=== PATIENT | male | born 1965 | race Caucasian/White ===

== ENCOUNTER → 2017-11-26 | Outpatient (CLI) | payer OTHER ==
--- NOTE | 2017-11-26 16:25 | XR ---
EXAMINATION TYPE: XR knee limited LT DATE OF EXAM: 11/26/2017 CLINICAL HISTORY: Left knee pain TECHNIQUE: Three views of the left knee are obtained. COMPARISON: None. FINDINGS: There is no acute fracture/dislocation evident in left knee. There is mild medial compartm ent joint space narrowing and tibial plateau sclerosis.. The overlying soft tissue appears unremarka ble. IMPRESSION: There is no acute fracture or dislocation in the left knee. Mild medial compartment arth rosis.
== END | disposition home or self-care (01) ==
LOC: RADXRMAIN 15:47
PROVIDERS: ATTEND Midwife
DX: M17.12 Unilateral primary osteoarthritis, left knee (principal)

== ENCOUNTER 2018-02-03 13:09 | Observation (INO) | payer OTHER ==
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
[2018-02-03 14:44] LABS: ALT 157 U/L (21-72); AST 187 U/L (17-59); Albumin 4.7 g/dL (3.5-5.0); Alkaline Phosphatase 136 U/L (38-126); Amylase 121 U/L (30-110); Anion Gap 13 mmol/L; Blood Urea Nitrogen 6 mg/dL (9-20); Calcium 9.2 mg/dL (8.4-10.2); Carbon Dioxide 25 mmol/L (22-30); Chloride 106 mmol/L (98-107); Glucose 93 mg/dL (74-99); Lipase 350 U/L (23-300); Potassium 4.4 mmol/L (3.5-5.1); Sodium 144 mmol/L (137-145); Total Bilirubin 0.7 mg/dL (0.2-1.3); Total Protein 8.1 g/dL (6.3-8.2)
[2018-02-03 14:45] LABS: Amphetamine Screen,Urine Not Detected (NotDetected); Barbiturate Screen,Urine Not Detected (NotDetected); Benzodiazepines Screen,Urine Not Detected (NotDetected); Cocaine Screen,Urine Not Detected (NotDetected); Methadone Screen, Urine Not Detected (NotDetected); Opiate Screen,Urine Not Detected (NotDetected); Oxycodone Screen, Urine Not Detected (NotDetected); Phencyclidine Screen,Urine Not Detected (NotDetected); Tricyclic Antidepressant,Urine Not Detected (NotDetected); Urn Cannabinoid Scrn Not Detected (NotDetected)
[2018-02-03 14:59] LABS: Alcohol 326 mg/dL
[2018-02-03 15:03] LABS: Basophils % (A) 1 %; Eosinophils # (A) 0.1 k/uL (0-0.7); Eosinophils % (A) 3 %; HCT 44.9 % (39.0-53.0); HGB 15.4 gm/dL (13.0-17.5); Lymphocytes # (A) 0.6 k/uL (1.0-4.8); Lymphocytes % (A) 26 %; MCH 36.8 pg (25.0-35.0); MCHC 34.4 g/dL (31.0-37.0); MCV 107.1 fL (80.0-100.0); Macrocytosis Moderate; Monocytes # (A) 0.2 k/uL (0-1.0); Monocytes % (A) 10 %; Neutrophils # (A) 1.3 k/uL (1.3-7.7); Neutrophils % (A) 54 %; Platelet Count 138 k/uL (150-450); RDW 13.1 % (11.5-15.5); WBC 2.3 k/uL (3.8-10.6)
[2018-02-03] MEDS ORDERED: NALOXONE 0.4 MG/ML 1 ML VIAL IV PRN (15:15)
[2018-02-03] MEDS ORDERED: THIAMINE 100 MG/ML 2 ML VIAL IM STA (15:18)
[2018-02-03] MEDS ORDERED: LORazepam 2 MG/ML INJ IV PRN ×2 (15:18)
[2018-02-03] MEDS: THIAMINE 100 MG TAB PO SCH (18:47)
[2018-02-03] MEDS ORDERED: ARTIFICIAL TEARS-HYPROMELLOSE DROPS 15 ML BTL BOTH EYES PRN (21:19)
[2018-02-03] MEDS ORDERED: TEMAZEPAM 15 MG CAP PO PRN (21:20)
[2018-02-03] MEDS ORDERED: ACETAMINOPHEN TAB 500 MG TAB PO PRN (21:20)
[2018-02-03] MEDS ORDERED: cloNIDine HCL 0.1 MG TAB PO PRN (21:21)
[2018-02-03 22:03] LABS: Appearance,Urine Clear (Clear); Bilirubin,Urine Negative (Negative); Blood,Urine Negative (Negative); Color,Urine Light Yellow; Glucose,Urine (UA) Negative (Negative); Ketones,Urine Negative (Negative); Leukocyte Esterase,Urine Negative (Negative); Nitrite,Urine Negative (Negative); Protein,Urine Negative (Negative); Specific Gravity,Urine 1.006 (1.001-1.035); Urobilinogen,Urine <2.0 mg/dL (<2.0)
--- NOTE | 2018-02-03 22:45 | HP ---
HISTORY AND PHYSICAL DATE OF SERVICE: 02/03/2018 I am covering for Dr. Michael Smith. HISTORY OF PRESENT ILLNESS: This 52-year-old gentleman with a past medical history of no significant medical issues except depression being followed by Dr. Michael Smith in the outpatient setting was apparently drinking heavily last night. The patient had a voice telling him that the had to kill himself. The patient apparently was withdrawing. Subsequently patient came to [facility] and was admitted for further evaluation and treatment. The patient was drinking Vodka and multiple cans of beer also. There is no history of fever, rigors. No history of headache, loss of consciousness, seizures at this time. PAST MEDICAL HISTORY: History of depression. History of EtOH. Stent in the kidneys. MEDICATIONS: Prior to admission include: Eye lubricant and Lexapro 10 mg daily. ALLERGIES: None. FAMILY HISTORY: History of cancer in the family. SOCIAL HISTORY: History of significant alcohol. No history of smoking. REVIEW OF SYSTEMS: ENT: No diminished vision. No diminished hearing. CARDIOVASCULAR: No angina or palpitations. RESPIRATORY: No cough or hemoptysis. GI no nausea or vomiting. : No dysuria. NERVOUS SYSTEM: As mentioned earlier. Allergy/Immunology: No asthma or hayfever. Musculoskeletal as mentioned earlier. Hematology/Oncology: No history of anemia. ENDOCRINE: No history of diabetes or hypothyroidism. Constitutional: As mentioned earlier. Dermatology: Negative. Rheumatology: Negative. Psychiatry: As mentioned earlier. PHYSICAL EXAMINATION: Alert and oriented times three. Pulse is 112, blood pressure 135/94, respiration 18, temperature 97.2, pulse ox 97% on room air. HEENT: Conjunctivae normal. Oral mucosa moist. Neck is no jugular venous distention. No carotid bruit. No lymph node enlargement. Cardiovascular system: S1, S2. RESPIRATORY: Breath sounds diminished in the bases. No rhonchi. No crackles. ABDOMEN: Soft, nontender. No mass palpable. Legs no edema. No swelling. Nervous system: Higher functions as mentioned earlier. Moves all 4 limbs. Mild diffuse tremors present. Otherwise no focal deficits. SKIN: No ulcer, rash or bleeding. JOINTS: No active deformity. Lymphatics: No lymph nodes palpable in the neck, axillae or groin. LABS: At this time shows WBC 2.3 and hemoglobin 15.4, and AST 187, ALT 157, amylase 121, lipase 350. Serum alcohol 326. ASSESSMENT: 1. Acute alcohol intoxication and early withdrawal symptoms. 2. Depression with suicidal ideations. 3. AST, ALT, possibly alcoholic hepatitis. 4. Increased amylase, lipase, possible mild alcoholic pancreatitis. 5. Leukopenia secondary to alcohol. 6. History of kidney stent. 7. History of depression. RECOMMENDATIONS AND DISCUSSION: In this 52-year-old gentleman who presented with multiple complex medical issues, we will monitor the patient closely continue the current medications, management and symptomatic treatment, follow the CIWA protocol. Psychiatric consultation. Otherwise, suicide precautions. Symptomatic treatment. Prognosis guarded because of multiple complex medical issues. Further recommendations to follow. Dr. Smith will follow. MMODL / IJN: [id number] /
[2018-02-04] MEDS: LORazepam 2 MG/ML INJ IV PRN ×2 (02:59→08:58)
[2018-02-04] MEDS: cloNIDine HCL 0.1 MG TAB PO SCH ×2 (07:17→09:00)
[2018-02-04] MEDS ORDERED: PANTOPRAZOLE 40 MG TABLET PO SCH (07:30)
[2018-02-04] MEDS ORDERED: PNEUMOCOCCAL VACC-PNEUMOVAX 23 25 MCG/0.5 ML VIAL IM ONE (07:43)
[2018-02-04] MEDS ORDERED: INFLUENZA VACCINE (6 MOS+) 60 MCG/0.5 ML SYRINGE IM ONE (07:43)
[2018-02-04] MEDS ORDERED: HEPARIN SODIUM,PORCINE 5,000 UNIT/ML 1 ML VIAL SQ SCH (09:00)
[2018-02-04] MEDS ORDERED: ESCITALOPRAM 10 MG TAB PO SCH (09:00)
[2018-02-04 10:26] LABS: Basophils % (A) 1 %; Eosinophils # (A) 0.1 k/uL (0-0.7); Eosinophils % (A) 2 %; HCT 41.6 % (39.0-53.0); Lymphocytes # (A) 0.4 k/uL (1.0-4.8); Lymphocytes % (A) 11 %; MCH 35.9 pg (25.0-35.0); MCHC 33.7 g/dL (31.0-37.0); MCV 106.3 fL (80.0-100.0); Macrocytosis Slight; Mean Platelet Volume 7.4; Monocytes # (A) 0.3 k/uL (0-1.0); Monocytes % (A) 8 %; Neutrophils # (A) 2.6 k/uL (1.3-7.7); Neutrophils % (A) 75 %; Platelet Count 143 k/uL (150-450); RBC 3.91 m/uL (4.30-5.90); RDW 12.9 % (11.5-15.5); WBC 3.5 k/uL (3.8-10.6)
[2018-02-04 11:02] LABS: ALT 126 U/L (21-72); AST 137 U/L (17-59); Albumin 4.5 g/dL (3.5-5.0); Alkaline Phosphatase 145 U/L (38-126); Amylase 104 U/L (30-110); Anion Gap 10 mmol/L; Blood Urea Nitrogen 11 mg/dL (9-20); Calcium 9.7 mg/dL (8.4-10.2); Carbon Dioxide 30 mmol/L (22-30); Chloride 100 mmol/L (98-107); Glucose 107 mg/dL (74-99); Lipase 280 U/L (23-300); Potassium 3.9 mmol/L (3.5-5.1); Sodium 140 mmol/L (137-145); Total Bilirubin 1.3 mg/dL (0.2-1.3); Total Protein 7.6 g/dL (6.3-8.2)
--- NOTE | 2018-02-04 12:10 | P.PN ---
Subjective Patient resting in bed states he had some on nausea last night. Noted symptoms of withdrawal. States the patient is no longer suicidal states that it was secondary to the alcohol. Patient is a family stress Objective - Vital Signs Vital signs: Vital Signs Temp 98.4 F 02/04/18 02:41 Pulse 77 02/04/18 02:41 Resp 19 02/04/18 02:41 BP 165/85 02/04/18 02:41 Pulse Ox 98 02/04/18 02:41 Intake & Output 02/03/18 02/04/18 02/04/18 18:59 06:59 18:59 Intake Total 30 Balance 30 Weight 73.028 kg Intake: Amount of Fluid Infused ( 30 ml) - Constitutional General appearance: Present: mild distress - EENT Eyes: Present: PERRLA Ears: bilateral: normal - Neck Neck: Present: normal ROM - Respiratory Respiratory: bilateral: CTA - Cardiovascular Rhythm: regular - Gastrointestinal General gastrointestinal: Present: soft - Integumentary Integumentary: Present: normal - Neurologic Neurologic: Present: CNII-XII intact - Psychiatric Psychiatric: Present: A&O x's 3, appropriate affect, intact judgment & insight - Labs CBC & Chem 7: 02/04/18 09:26 02/04/18 09:26 Labs: Abnormal Lab Results - Last 24 Hours (Table) 02/03/18 02/03/18 02/04/18 Range/Units 14:20 14:20 09:26 WBC 2.3 L 3.5 L (3.8-10.6) k/uL RBC 4.20 L 3.91 L (4.30-5.90) m/uL MCV 107.1 H 106.3 H (80.0-100.0) fL MCH 36.8 H 35.9 H (25.0-35.0) pg Plt Count 138 L 143 L (150-450) k/uL Lymphocytes # 0.6 L 0.4 L (1.0-4.8) k/uL BUN 6 L (9-20) mg/dL Creatinine 0.65 L (0.66-1.25) mg/dL Glucose (74-99) mg/dL AST 187 H (17-59) U/L ALT 157 H (21-72) U/L Alkaline Phosphatase 136 H (38-126) U/L Amylase 121 H (30-110) U/L Lipase 350 H (23-300) U/L Serum Alcohol 326 H* mg/dL 02/04/18 Range/Units 09:26 WBC (3.8-10.6) k/uL RBC (4.30-5.90) m/uL MCV (80.0-100.0) fL MCH (25.0-35.0) pg Plt Count (150-450) k/uL Lymphocytes # (1.0-4.8) k/uL BUN (9-20) mg/dL Creatinine (0.66-1.25) mg/dL Glucose 107 H (74-99) mg/dL AST 137 H (17-59) U/L ALT 126 H (21-72) U/L Alkaline Phosphatase 145 H (38-126) U/L Amylase (30-110) U/L Lipase (23-300) U/L Serum Alcohol mg/dL Assessment and Plan Plan: Assessment Acute alcohol intoxication with early withdrawals symptoms Depression with suicidal ideation improving Alcoholic hepatitis Alcoholic pancreatitis improving Leukopenia secondary to alcohol History of kidney stent History depression Plan Monitor for delirium tremor Psychiatric consultation regarding suicidal ideation His aide at bedside to monitor for his suicidal precautions
[2018-02-04] MEDS: THIAMINE 100 MG TAB PO SCH ×2 (12:41→17:18)
[2018-02-04 12:51] VITALS: RESP 22
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
[2018-02-04 14:16] VITALS: BMI 24.5
[2018-02-04 15:49] VITALS: BP 131/85; PULSE 104; TEMP 98.6
--- NOTE | 2018-02-04 15:50 | P.DS ---
Providers Date of admission: 02/03/18 15:15 Expected date of discharge: 02/04/18 Attending physician: Michael Smith Consults: 02/03/18 15:37 Consult Physician Routine Consulting Provider: Navin Tobar Consult Reason/Comments: Depression, suicidal ideation Do you want consulting provider notified?: Yes, Notify in am Primary care physician: Michael Smith Hospital Course: 52-year-old male was admitted through the emergency room with acute alcohol intoxication and the suicidal ideation. Patient was evaluated by psychiatrists and cleared for discharge. Patient develop a physician Dr. Michael Smith. Patient was found to have mild alcoholic pancreatitis that is improved Assessment acute alcohol intoxication with early withdrawal symptoms depression or suicidal ideation alcoholic hepatitis alcoholic pancreatitis improved history of depression Plan follow up with the psychiatrist follow up with family physician Dr. Michael Smith Patient Condition at Discharge: Stable Plan - Discharge Summary Discharge Rx Participant: No New Discharge Prescriptions: New Artificial Tears-Hypromellose [Artificial Tear Drops] 1 drops BOTH EYES DAILY PRN bottle PRN Reason: Dry Eye(S) cloNIDine HCL [Catapres] 0.1 mg PO BID 10 Days #20 tab Naltrexone HCl [Revia] 50 mg PO 2100 30 Days #30 tab Pantoprazole [Protonix] 40 mg PO AC-BRKFST 30 Days #30 tablet. Thiamine [Vitamin B-1] 100 mg PO BID@1200,1700 tab Continue Escitalopram [Lexapro] 10 mg PO DAILY Discontinued Eye Lubricant Combination No.1 [Freshkote] 1 applic BOTH EYES DAILY PRN PRN Reason: Dry Eye(S) Discharge Medication List Escitalopram [Lexapro] 10 mg PO DAILY 02/03/18 [History] Artificial Tears-Hypromellose [Artificial Tear Drops] 1 drops BOTH EYES DAILY PRN bottle 02/04/18 [Rx] Naltrexone HCl [Revia] 50 mg PO 2100 30 Days #30 tab 02/04/18 [Rx] Pantoprazole [Protonix] 40 mg PO AC-BRKFST 30 Days #30 tablet. 02/04/18 [Rx] Thiamine [Vitamin B-1] 100 mg PO BID@1200,1700 tab 02/04/18 [Rx] cloNIDine HCL [Catapres] 0.1 mg PO BID 10 Days #20 tab 02/04/18 [Rx] Follow up Appointment(s)/Referral(s): Michael Smith MD [Primary Care Provider] - 1-2 days
[2018-02-04] MEDS ORDERED: NALTREXONE HCL 50 MG TAB PO SCH (21:00)
== END 2018-02-04 17:50 | disposition home or self-care (01) ==
LOC: EC 13:09 → 5MS5E 15:15
PROVIDERS: ADMIT Family Medicine; ATTEND Family Medicine
DX: F10.239 Alcohol dependence with withdrawal, unspecified (principal); F10.229 Alcohol dependence with intoxication, unspecified; F32.9 Major depressive disorder, single episode, unspecified; R45.851 Suicidal ideations; K70.10 Alcoholic hepatitis without ascites; K85.90 Acute pancreatitis without necrosis or infection, unspecified; Z79.899 Other long term (current) drug therapy; Z80.9 Family history of malignant neoplasm, unspecified; D72.819 Decreased white blood cell count, unspecified; Z23 Encounter for immunization
CPT/HCPCS: 99284; 96372 ×3; 96374 ×2; 96376; 82075; 36415; 80053 ×2; 82150 ×2; 83690 ×2; 83735; 85025 ×2; 81003; 80306; 90732; 90686; G0378 ×2; G0480 ×2; G0008; G0009; J2060; J1644; J3411; 80320

== ENCOUNTER 2018-05-25 08:48 | Emergency (ER) | payer OTHER ==
[2018-05-25 08:59] VITALS: RESP 18; TEMP 98.7
[2018-05-25] MEDS ORDERED: DIPH,PERTUS(ACELL)TETVAC-LF 0.5 ML VIAL IM ONE (09:19)
--- NOTE | 2018-05-25 09:20 | ED ---
Animal Bite HPI - General Chief Complaint: Animal Bite Stated Complaint: cat bite Time Seen by Provider: 05/25/18 09:09 Source: patient, RN notes reviewed, old records reviewed Mode of arrival: ambulatory Limitations: no limitations - History of Present Illness Initial Comments: Patient is a 32-year-old male who presents to return today with chief complaint of right wrist and hand pain and swelling 2 days after he was bit by a feral cat. Patient reports that his brought a feral cat to the house trying to save it. Patient states that he tried to remove the cap from the house and was attacks. Patient states that he had multiple puncture wounds from bites on the right wrist. He states that he noticed that it started to become increasingly swollen and red today. He hasn't not been vaccinated for rabies. As well as not had any antibiotics as of this time. Patient denies any fevers at this time. He states he has some pain with range of motion of the wrist and hand. - Related Data Home Medications Medication Instructions Recorded Confirmed Escitalopram [Lexapro] 10 mg PO DAILY 02/03/18 05/25/18 Previous Rx's Medication Instructions Recorded Amoxic-Pot Clav 875-125Mg 1 tab PO Q12HR #20 tablet 05/25/18 [Augmentin 875-125] Allergies Allergy/AdvReac Type Severity Reaction Status Date / Time No Known Allergies Allergy Verified 05/25/18 09:36 Review of Systems ROS Statement: Those systems with pertinent positive or pertinent negative responses have been documented in the HPI. ROS Other: All systems not noted in ROS Statement are negative. Past Medical History Past Medical History: No Reported History Additional Past Medical History / Comment(s): ETOH with past withdrawal, diverticular disease, internal hemorrhoids. 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 Father Family Medical History: Cancer Additional Family Medical History / Comment(s): Father of colono cancer at the age of 75yrs. General Exam - General Exam Comments Initial Comments: 52-year-old male. Alert and oriented. No acute distress. Limitations: no limitations General appearance: alert, in no apparent distress Head exam: Present: atraumatic, normocephalic, normal inspection Eye exam: Present: normal appearance, PERRL, EOMI. Absent: scleral icterus, conjunctival injection, periorbital swelling ENT exam: Present: normal exam, mucous membranes moist Neck exam: Present: normal inspection. Absent: tenderness, meningismus, lymphadenopathy Respiratory exam: Present: normal lung sounds bilaterally. Absent: respiratory distress, wheezes, rales, rhonchi, stridor Cardiovascular Exam: Present: regular rate, normal rhythm, normal heart sounds. Absent: systolic murmur, diastolic murmur, rubs, gallop, clicks GI/Abdominal exam: Present: soft, normal bowel sounds. Absent: distended, tenderness, guarding, rebound, rigid Extremities exam: Present: normal inspection, full ROM, normal capillary refill. Absent: tenderness, pedal edema, joint swelling, calf tenderness Right Elbow exam: Present: normal inspection, full ROM Forearm Wrist exam: Present: tenderness, swelling, erythema (Patient has tenderness swelling and erythema over the dorsum of the right wrist. Evidence of closed over puncture wounds from cat bite over the distal radius.). Absent: normal inspection Hand Wrist exam: Present: tenderness, swelling, erythema. Absent: normal inspection Vascular: Present: normal capillary refill Back exam: Present: normal inspection Neurological exam: Present: alert, oriented X3, CN II-XII intact Psychiatric exam: Present: normal affect, normal mood Skin exam: Present: warm, dry, intact, normal color. Absent: rash Course Vital Signs 05/25/18 08:57 Temperature 98.7 F Pulse Rate 105 H Respiratory 18 Rate Blood Pressure 155/101 O2 Sat by Pulse 98 Oximetry - Reevaluation(s) Reevaluation #1: 05/25/18 10:07 I infiltrated 4.7 mL's of rabies immunoglobulin and around the bite site. Medical Decision Making - Medical Decision Making Patient's 52-year-old male presents emergency department today 2 days post-cat bite. He has extensive erythema and swelling over the right hand and distal forearm. He does have range of motion sign. Normal capillary refill and sensation. Patient was offered admission. He was given 1 dose of IV Unasyn. He states he preferred to try a course of outpatient antibiotic. I did give the Patient is rabies injection with around the bite site as well as the rabies vaccine IM. He also was updated on his tetanus. Patient has been advised on strict return parameters and if the area of redness and swelling worsen within the next 24-48 hours he will require IV antibiotics. Patient agrees to treatment plan will comply. Return parameters were discussed. - Radiology Data Radiology results: report reviewed X-rays negative for any acute osseous lesion. Disposition Clinical Impression: Cat bite Disposition: HOME SELF-CARE Condition: Good Instructions (If sedation given, give patient instructions): Animal Bite (ED) Additional Instructions: Patient advised to follow-up. If the area of redness and swelling worsens within the next 24 hours Patient should return for reevaluation and likely IV antibiotic. Patient should also get the tetanus vaccines asked prescribed as well an outpatient [facility] office. Prescriptions: Amoxic-Pot Clav 875-125Mg [Augmentin 875-125] 1 tab PO Q12HR #20 tablet Is patient prescribed a controlled substance at d/c from ED?: Yes If prescribed controlled substance>3 days was MAPS reviewed?: Prescribed <3 Days If opioid is for acute pain is fill amount 7 days or less?: Yes If Rx opioid, was Start Talking consent form obtained?: Yes Referrals: Michael Smith MD [Primary Care Provider] - 1-2 days Time of Disposition: 10:53
[2018-05-25] MEDS ORDERED: AMPICILLIN-SULBACTAM 3 GM in SODIUM CHLORIDE 0.9% 100 ML IVPB STA (09:22)
[2018-05-25] MEDS ORDERED: RABIES VACC,HUMAN DIPLOID (PF) 2.5 UNIT KIT IM ONE (09:30)
[2018-05-25] MEDS ORDERED: RABIES IMMUNE GLOB 150 UNIT/ML 10 ML VIAL IM ONE (09:30)
[2018-05-25 09:38] LABS: HCT 38.9 % (39.0-53.0); HGB 12.8 gm/dL (13.0-17.5); MCH 35.6 pg (25.0-35.0); MCHC 32.9 g/dL (31.0-37.0); MCV 108.2 fL (80.0-100.0); Macrocytosis Moderate; Mean Platelet Volume 7.3; Platelet Count 162 k/uL (150-450); RBC 3.59 m/uL (4.30-5.90); RDW 12.9 % (11.5-15.5); WBC 5.4 k/uL (3.8-10.6)
--- NOTE | 2018-05-25 09:39 | XR ---
EXAMINATION TYPE: XR hand complete RT , DATE OF EXAM ORDERED: 05/25/2018 HISTORY: Cat bite. COMPARISON: None. FINDINGS: No fracture, dislocation or radiopaque foreign body is seen. There is soft tissue swelling over the dorsum of the hand. IMPRESSION: NO ACUTE OSSEOUS LESION.
[2018-05-25 09:44] LABS: Anion Gap 9 mmol/L; Blood Urea Nitrogen 5 mg/dL (9-20); Calcium 8.9 mg/dL (8.4-10.2); Carbon Dioxide 25 mmol/L (22-30); Chloride 102 mmol/L (98-107); Glucose 130 mg/dL (74-99); Potassium 3.3 mmol/L (3.5-5.1); Sodium 136 mmol/L (137-145)
[2018-05-25 09:55] LABS: Eosinophils # (M) 0.05 k/uL (0-0.7); Lymphocytes # (M) 0.49 k/uL (1.0-4.8); Monocytes # (M) 0.76 k/uL (0-1.0); Neutrophils % (M) 76 %; Nucleated Red Blood Cells 0 /100 WBC (0-0); Poikilocytosis (M) Present; Total Cells Counted 100
[2018-05-25] MEDS ORDERED: KETOROLAC 30 MG/ML 1 ML VIAL IVP STA (10:02)
[2018-05-25] MEDS ORDERED: HYDROcodone/APAP 5-325MG 1 EACH TAB PO STA (10:02)
[2018-05-25 11:13] VITALS: BP 147/67; PULSE 72
== END 2018-05-25 11:13 | disposition home or self-care (01) ==
LOC: EC 08:48
DX: S61.531A Puncture wound without foreign body of right wrist, initial encounter (principal); F32.9 Major depressive disorder, single episode, unspecified; Z23 Encounter for immunization; Z79.899 Other long term (current) drug therapy; W55.01XA Bitten by cat, initial encounter; Y93.89 Activity, other specified
CPT/HCPCS: 36415; 80048; 85025; 87040; 73130; 90375; 90675; 90715; 99284; 96365; 96372; 90471; 90472; J0295

== ENCOUNTER 2018-05-26 10:14 | Inpatient (IN) | payer OTHER ==
[2018-05-26] MEDS ORDERED: SODIUM CHLORIDE 0.9% 1,000 ML IV ONE (11:11)
[2018-05-26] MEDS ORDERED: AMPICILLIN-SULBACTAM 3 GM in SODIUM CHLORIDE 0.9% 100 ML IVPB STA (11:11)
--- NOTE | 2018-05-26 11:26 | ED ---
Animal Bite HPI - General Chief Complaint: Animal Bite Stated Complaint: cat bite recheck Time Seen by Provider: 05/26/18 11:09 Source: patient, RN notes reviewed, old records reviewed Mode of arrival: ambulatory Limitations: no limitations - History of Present Illness Initial Comments: Patient's 52-year-old male who presents by his family today for reevaluation. He reports worsening swelling of the right forearm. Patient states he was bit by The Right Wrist on the Sunday. Patient reports that he has had no fevers or chills. He states the swelling his hand is diminished today. I did also give the Patient rabies prophylaxis yesterday. Patient was advised on strict return parameters and return today. It was of note the Patient did have a positive blood culture of gram-positive cocci. - Related Data Home Medications Medication Instructions Recorded Confirmed Escitalopram [Lexapro] 10 mg PO DAILY 02/03/18 05/26/18 Previous Rx's Medication Instructions Recorded Amoxic-Pot Clav 875-125Mg 1 tab PO Q12HR #20 tablet 05/25/18 [Augmentin 875-125] Allergies Allergy/AdvReac Type Severity Reaction Status Date / Time No Known Allergies Allergy Verified 05/26/18 12:07 Review of Systems ROS Statement: Those systems with pertinent positive or pertinent negative responses have been documented in the HPI. ROS Other: All systems not noted in ROS Statement are negative. Past Medical History Past Medical History: No Reported History Additional Past Medical History / Comment(s): ETOH with past withdrawal, diverticular disease, internal hemorrhoids. 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 Father Family Medical History: Cancer Additional Family Medical History / Comment(s): Father of colono cancer at the age of 75yrs. General Exam - General Exam Comments Initial Comments: This is a 52-year-old male. Alert and oriented. Appears well. No acute distress. Limitations: no limitations General appearance: alert, in no apparent distress Head exam: Present: atraumatic, normocephalic, normal inspection Eye exam: Present: normal appearance, PERRL, EOMI. Absent: scleral icterus, conjunctival injection, periorbital swelling ENT exam: Present: normal exam, mucous membranes moist Neck exam: Present: normal inspection. Absent: tenderness, meningismus, lymphadenopathy Respiratory exam: Present: normal lung sounds bilaterally. Absent: respiratory distress, wheezes, rales, rhonchi, stridor Cardiovascular Exam: Present: regular rate, normal rhythm, normal heart sounds. Absent: systolic murmur, diastolic murmur, rubs, gallop, clicks GI/Abdominal exam: Present: soft, normal bowel sounds. Absent: distended, tenderness, guarding, rebound, rigid Extremities exam: Present: normal inspection, full ROM, normal capillary refill , other (Patient has erythema extending up the dorsum of the right hand, volar aspect of the forearm. The erythema extends near the elbow. There is evidence of Bite puncture wounds over the distal radius. He does have full range of motion of the fingers. Full flexion and extension of the wrist.). Absent: tenderness, pedal edema, joint swelling, calf tenderness Back exam: Present: normal inspection Neurological exam: Present: alert, oriented X3, CN II-XII intact Psychiatric exam: Present: normal affect, normal mood Skin exam: Present: warm, dry, intact, normal color. Absent: rash Course Vital Signs 05/26/18 10:56 Temperature 98.2 F Pulse Rate 87 Respiratory 18 Rate Blood Pressure 137/73 O2 Sat by Pulse 98 Oximetry Medical Decision Making - Medical Decision Making Patient's age 2-year-old male for reevaluation for Bite cellulitis and infection. Patient has had 3 doses of antibiotics at this time. He was given a dose of IV Unasyn yesterday. He was updated on his tetanus and given rabies prophylaxis. This was a feral cat that his brought in. Patient returns today for worsening swelling and redness going up the arm. He came in for IV antibiotic. I discussed case with Dr. De Guzman whom discussed case with Dr. Farooq that accepts admission. Given another dose of Unasyn in the ER. He is otherwise appears clinically well. It is of note the Patient did have some gram -positive cocci is a blood culture from yesterday. Disposition Clinical Impression: Failure of outpatient treatment, Cat bite of hand Disposition: ADMITTED IP TO THIS [facility] Condition: Stable Instructions (If sedation given, give patient instructions): Animal Bite (ED) Is patient prescribed a controlled substance at d/c from ED?: No Referrals: Michael Smith MD [Primary Care Provider] - 1-2 days Time of Disposition: 12:24
[2018-05-26] MEDS: SODIUM CHLORIDE 0.9% 1,000 ML IV SCH ×2 (11:50→20:36)
[2018-05-26 12:16] LABS: HCT 37.3 % (39.0-53.0); HGB 12.5 gm/dL (13.0-17.5); MCH 36.8 pg (25.0-35.0); MCHC 33.5 g/dL (31.0-37.0); MCV 109.7 fL (80.0-100.0); Macrocytosis Marked; Mean Platelet Volume 7.6; Platelet Count 178 k/uL (150-450); RDW 12.9 % (11.5-15.5); WBC 4.8 k/uL (3.8-10.6)
[2018-05-26] MEDS ORDERED: IBUPROFEN 400 MG TAB PO PRN (12:25)
[2018-05-26] MEDS ORDERED: ACETAMINOPHEN TAB 325 MG TAB PO PRN (12:25)
[2018-05-26] MEDS ORDERED: KETOROLAC 30 MG/ML 1 ML VIAL IVP PRN (12:25)
[2018-05-26] MEDS ORDERED: NALOXONE 0.4 MG/ML 1 ML VIAL IV PRN (12:25)
[2018-05-26] MEDS ORDERED: oxyCODONE-APAP 5-325MG 1 EACH TAB PO PRN (12:25)
[2018-05-26] MEDS ORDERED: ONDANSETRON 4 MG/2 ML VIAL IVP PRN (12:25)
[2018-05-26] MEDS ORDERED: LORazepam 2 MG/ML INJ IV PRN ×2 (12:25→14:41)
[2018-05-26 12:41] LABS: Band Neutrophils % 1 %; Lymphocytes # (M) 1.06 k/uL (1.0-4.8); Monocytes # (M) 0.58 k/uL (0-1.0); Neutrophils % (M) 63 %; Nucleated Red Blood Cells 0 /100 WBC (0-0); Total Cells Counted 100
[2018-05-26 12:45] LABS: ALT 118 U/L (21-72); AST 105 U/L (17-59); Albumin 3.8 g/dL (3.5-5.0); Alkaline Phosphatase 100 U/L (38-126); Anion Gap 6 mmol/L; Blood Urea Nitrogen 6 mg/dL (9-20); Calcium 8.9 mg/dL (8.4-10.2); Carbon Dioxide 28 mmol/L (22-30); Chloride 103 mmol/L (98-107); Glucose 68 mg/dL (74-99); Potassium 4.1 mmol/L (3.5-5.1); Sodium 137 mmol/L (137-145); Total Protein 6.6 g/dL (6.3-8.2)
[2018-05-26] MEDS ORDERED: hydrALAZINE HCL 20 MG/ML 1 ML VIAL IVP STA (13:49)
--- NOTE | 2018-05-26 14:42 | P.HPIM ---
History of Present Illness H&P Date: 05/26/18 Chief Complaint: Right hand swelling Patient is a 52-year-old male with a known history of alcohol abuse, diverticular disease and internal hemorrhoids and depression and previous history of suicide ideation came to ER with the complaints of right hand worsening swelling since last Sunday. Patient did have cat scratch on the dorsum of the hand and on the wrist. Patient started having swelling the next day. Patient was seen in the ER yesterday and was given a dose of Unasyn and sent home on Augmentin. Patient did take his medications and swelling is still worsening which made him come to the hospital. Denied any complaints of fever or chills. No sweating. No nausea vomiting or abdominal pain. No diarrhea or dysuria. No history of MRSA in the past. Denied any recent alcohol use. AST 105 and the LDL 118 Review of Systems Constitutional: Patient denies any fever or chills . No generalized weakness or weight loss. Abdomen: Patient denied nausea vomiting and diarrhea and abdominal pain. Cardiovascular: Patient denies any chest pain or short of breath no palpitations. Respiratory: patient denied any cough is from production. No shortness of breath Neurologic: Patient denied any numbness or tingling headache. Musculoskeletal: Patient denies any complaints of joint swelling or deformity. Swelling with the right hand and pain. Skin: Negative Psychiatric: Negative Endocrine: No heat or cold intolerance. No recent weight gain. Genitourinary: No dysuria or hematuria. All other 14 point ROS negative except the above Past Medical History Past Medical History: No Reported History Additional Past Medical History / Comment(s): ETOH with past withdrawal, diverticular disease, internal hemorrhoids. 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 Father Family Medical History: Cancer Additional Family Medical History / Comment(s): Father of colono cancer at the age of 75yrs. Medications and Allergies Home Medications Medication Instructions Recorded Confirmed Type Escitalopram [Lexapro] 10 mg PO DAILY 02/03/18 05/26/18 History Amoxic-Pot Clav 875-125Mg 1 tab PO Q12HR #20 tablet 05/25/18 05/26/18 Rx [Augmentin 875-125] Allergies Allergy/AdvReac Type Severity Reaction Status Date / Time No Known Allergies Allergy Verified 05/26/18 12:07 Physical Exam Vitals: Vital Signs Temp Pulse Resp BP Pulse Ox 05/26/18 13:47 98.5 F 72 18 150/103 100 05/26/18 10:56 98.2 F 87 18 137/73 98 Intake and Output 05/25/18 05/26/18 05/26/18 22:59 06:59 14:59 Other: Weight 70.307 kg PHYSICAL EXAMINATION: Patient is lying in the bed comfortably, no acute distress, awake alert and oriented.. HEENT: Normocephalic. Neck is supple. Pupils reactive. Nostrils clear. Oral cavity is moist. Ears reveal no drainage. Neck reveals no JVD, carotid bruits, or thyromegaly. CHEST EXAMINATION: Trachea is central. Symmetrical expansion. Lung landry clear to auscultation and percussion. CARDIAC: Normal S1, S2 with no gallops. No murmurs ABDOMEN: Soft. Bowel sounds normal. No organomegaly. No abdominal bruits. Extremities: reveal no edema. No clubbing or cyanosis Right hand swelling on the dorsal aspect up to wrist. Patient does have scratch markings on the dorsum of the hand and also on the wrist. No purulent drainage noted. Tender to palpation and redness. Neurologically awake, alert, oriented x3 with well-coordinated movements. No focal deficits noted Skin: No rash or skin lesions. Psychiatric: Coperative. Nonsuicidal Musculoskeletal: No joint swelling or deformity. Normal range of motion. Results CBC & Chem 7: 05/26/18 11:40 05/26/18 11:40 Labs: Abnormal Lab Results - Last 24 Hours (Table) 05/26/18 05/26/18 Range/Units 11:40 11:40 RBC 3.40 L (4.30-5.90) m/uL Hgb 12.5 L (13.0-17.5) gm/dL Hct 37.3 L (39.0-53.0) % MCV 109.7 H (80.0-100.0) fL MCH 36.8 H (25.0-35.0) pg BUN 6 L (9-20) mg/dL Creatinine 0.62 L (0.66-1.25) mg/dL Glucose 68 L (74-99) mg/dL AST 105 H (17-59) U/L ALT 118 H (21-72) U/L Thrombosis Risk Factor Assmnt - DVT/VTE Prophylaxis DVT/VTE Prophylaxis: Pharmacologic Prophylaxis ordered Assessment and Plan Assessment: Right hand swelling and cellulitis secondary to cat bite. Failed outpatient therapy. Elevated liver enzymes AST and ALTs likely alcoholic hepatitis GERD Macrocytosis History of alcohol abuse in the past History of diverticulosis Internal hemorrhoids Depression with prior history of suicidal ideation GI/DVT prophylaxis Plan: Patient will be continued on IV antibiotics in the form of Unasyn. Follow blood cultures and wound cultures. Continue the pain management and follow closely. GI and due to prophylaxis. Further admissions based on the clinical course. Time with Patient: Greater than 30
[2018-05-26 15:12] VITALS: BMI 23.6
[2018-05-26] MEDS: HEPARIN SODIUM,PORCINE 5,000 UNIT/ML 1 ML VIAL SQ SCH ×2 (17:49→23:51)
[2018-05-26] MEDS: AMPICILLIN-SULBACTAM 3 GM in SODIUM CHLORIDE 0.9% 100 ML IVPB SCH ×2 (17:49→23:51)
[2018-05-27] MEDS: AMPICILLIN-SULBACTAM 3 GM in SODIUM CHLORIDE 0.9% 100 ML IVPB SCH ×4 (05:38→23:21)
[2018-05-27 08:02] LABS: HCT 35.1 % (39.0-53.0); HGB 11.7 gm/dL (13.0-17.5); MCH 36.4 pg (25.0-35.0); MCHC 33.3 g/dL (31.0-37.0); MCV 109.2 fL (80.0-100.0); Macrocytosis Moderate; Mean Platelet Volume 7.8; Platelet Count 169 k/uL (150-450); RBC 3.21 m/uL (4.30-5.90); RDW 12.8 % (11.5-15.5); WBC 3.3 k/uL (3.8-10.6)
[2018-05-27 08:14] LABS: ALT 79 U/L (21-72); AST 54 U/L (17-59); Alkaline Phosphatase 113 U/L (38-126); Anion Gap 5 mmol/L; Blood Urea Nitrogen 6 mg/dL (9-20); Calcium 8.3 mg/dL (8.4-10.2); Carbon Dioxide 27 mmol/L (22-30); Chloride 107 mmol/L (98-107); Glucose 87 mg/dL (74-99); Potassium 3.6 mmol/L (3.5-5.1); Sodium 139 mmol/L (137-145); Total Bilirubin 0.8 mg/dL (0.2-1.3); Total Protein 5.5 g/dL (6.3-8.2)
[2018-05-27] MEDS: HEPARIN SODIUM,PORCINE 5,000 UNIT/ML 1 ML VIAL SQ SCH ×3 (08:34→23:20)
[2018-05-27] MEDS: ESCITALOPRAM 10 MG TAB PO SCH (08:34)
[2018-05-27] MEDS ORDERED: MELATONIN 5 MG TABLET PO PRN (08:46)
[2018-05-27] MEDS ORDERED: PANTOPRAZOLE 40 MG/10 ML VIAL IV SCH (09:00)
[2018-05-27 09:01] LABS: Eosinophils # (M) 0.07 k/uL (0-0.7); Lymphocytes # (M) 0.66 k/uL (1.0-4.8); Monocytes # (M) 0.69 k/uL (0-1.0); Neutrophils # (M) 1.88 k/uL (1.3-7.7); Neutrophils % (M) 57 %; Nucleated Red Blood Cells 0 /100 WBC (0-0); Total Cells Counted 100
[2018-05-27] MEDS: SODIUM CHLORIDE 0.9% 1,000 ML IV SCH ×2 (11:03→11:32)
[2018-05-27 18:06] LABS: Hepatitis A Antibody IgM Non-Reactive (Non-Reactive); Hepatitis B Core IgM Non-Reactive (Non-Reactive)
[2018-05-28] MEDS: SODIUM CHLORIDE 0.9% 1,000 ML IV SCH (03:31)
[2018-05-28 05:07] VITALS: PULSE 71
[2018-05-28] MEDS: AMPICILLIN-SULBACTAM 3 GM in SODIUM CHLORIDE 0.9% 100 ML IVPB SCH (05:26)
[2018-05-28 07:01] VITALS: BP 154/90; RESP 17; TEMP 98.6
[2018-05-28] MEDS: HEPARIN SODIUM,PORCINE 5,000 UNIT/ML 1 ML VIAL SQ SCH (08:41)
[2018-05-28] MEDS: ESCITALOPRAM 10 MG TAB PO SCH (08:41)
[2018-05-28] MEDS ORDERED: PANTOPRAZOLE 40 MG TABLET PO SCH (09:00)
--- NOTE | 2018-05-28 13:21 | PN ---
PROGRESS NOTE DATE OF SERVICE: 05/27/2018 CHIEF COMPLAINT: Cat bite and cellulitis right wrist. HISTORY OF PRESENT ILLNESS: This gentleman is doing well. The pain and swelling are improving. He has a fairly good range of motion in the fingers, hand and wrist at this point. PHYSICAL EXAMINATION: The wrist is still swollen and there is no drainage from the bites. There is still some tenderness. There is less cellulitis. IMPRESSION: Cat bite with cellulitis of the right wrist. PLAN: Continue with IV antibiotics for at least another day. MMODL / IJN: [id number] /
--- NOTE | 2018-05-28 14:00 | DS ---
DISCHARGE SUMMARY CHIEF CONCERN: Infected cat bite to the right wrist. HISTORY OF PRESENT ILLNESS AND PHYSICAL EXAM: Details of this man's history and physical can be found in the initial workup. COURSE IN HOSPITAL: After admission, he was placed on bedrest, started on intravenous fluids and placed on IV antibiotics. Pain, swelling and redness on the wrists, slowly began to subside. It looks as though he was doing well enough to go home on 05/28 and he will be sent home on his Augmentin 850 twice a day for about 12 more days. He will be seen in the office in several days. FINAL DIAGNOSIS: Cat bite with cellulitis of the right wrist and hand. OPERATIONS: None. CONSULTATION: He is improved. MMODL / IJN: [id number] /
== END 2018-05-28 11:25 | disposition home or self-care (01) | DRG 603 ==
LOC: EC 10:14 → 3NMEDONC 11:53
PROVIDERS: ADMIT Family Medicine; ATTEND Family Medicine
DX: L03.113 Cellulitis of right upper limb (principal); S61.451A Open bite of right hand, initial encounter; D75.89 Other specified diseases of blood and blood-forming organs; F32.9 Major depressive disorder, single episode, unspecified; K21.9 Gastro-esophageal reflux disease without esophagitis; K64.8 Other hemorrhoids; K70.10 Alcoholic hepatitis without ascites; W55.01XA Bitten by cat, initial encounter; W55.03XA Scratched by cat, initial encounter; Z79.899 Other long term (current) drug therapy; Z80.8 Family history of malignant neoplasm of other organs or systems; F10.11 Alcohol abuse, in remission; K57.90 Diverticulosis of intestine, part unspecified, without perforation or abscess without bleeding
CPT/HCPCS: 36415; 80053; 80074; 85025; 87040; 96361; 96365; 96375; 99284

== ENCOUNTER 2018-06-29 14:27 | Emergency (ER) | payer OTHER ==
[2018-06-29 14:32] VITALS: RESP 18
--- NOTE | 2018-06-29 14:48 | ED ---
General Adult HPI - General Chief complaint: Recheck/Abnormal Lab/Rx Stated complaint: Med Clearance Time Seen by Provider: 06/29/18 14:30 Source: patient, police, RN notes reviewed Mode of arrival: ambulatory Limitations: no limitations - History of Present Illness Initial comments: This a 52-year-old male who is brought in by police for senior care clearance. Patient is intoxicated and was found driving a car. According to the police they were following for a while he was driving just fine but this Sunday called to the police to let them know his father was intoxicated and driving. According to the police the patient was ambulating without problem. Patient tells me he has no complaints per patient denies headache patient denies any recent injury or trauma per patient denies any chest pain palpitations difficulty breathing shortness of breath. Patient denies abdominal pain patient denies nausea vomiting diarrhea. Rates he has been drinking heavily for the last 2 years and is a alcoholic at this point. - Related Data Home Medications Medication Instructions Recorded Confirmed Escitalopram [Lexapro] 10 mg PO DAILY 02/03/18 06/29/18 Allergies Allergy/AdvReac Type Severity Reaction Status Date / Time No Known Allergies Allergy Verified 06/29/18 14:37 Review of Systems ROS Statement: Those systems with pertinent positive or pertinent negative responses have been documented in the HPI. ROS Other: All systems not noted in ROS Statement are negative. Past Medical History Past Medical History: No Reported History Additional Past Medical History / Comment(s): ETOH with past withdrawal, diverticular disease, internal hemorrhoids. 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 Father Family Medical History: Cancer Additional Family Medical History / Comment(s): Father of colono cancer at the age of 75yrs. General Exam - General Exam Comments Initial Comments: GENERAL: Patient is well-developed and well-nourished. Patient is nontoxic and well- hydrated and is in no acute distress. ENT: Neck is soft and supple. No significant lymphadenopathy is noted. Oropharynx is clear. Moist mucous membranes. Neck has full range of motion without eliciting any pain. EYES: The sclera were anicteric and conjunctiva were pink and moist. Extraocular movements were intact and pupils were equal round and reactive to light. Eyelids were unremarkable. PULMONARY: Unlabored respirations. Good breath sounds bilaterally. No audible rales rhonchi or wheezing was noted. CARDIOVASCULAR: Patient is tachycardic at 105 bpm ABDOMEN: Soft and nontender with normal bowel sounds. No palpable organomegaly was noted. There is no palpable pulsatile mass. SKIN: Skin is clear with no lesions or rashes and otherwise unremarkable. NEUROLOGIC: Patient is alert and oriented x3. Cranial nerves II through XII are grossly intact. Motor and sensory are also intact. Normal speech, volume and content. Symmetrical smile. Patient was able to stand and flex and move around without problem patient was not unsteady on his feet at all MUSCULOSKELETAL: Normal extremities with adequate strength and full range of motion. No lower extremity swelling or edema. No calf tenderness. LYMPHATICS: No significant lymphadenopathy is noted PSYCHIATRIC: Normal psychiatric evaluation. Limitations: no limitations Course Vital Signs 06/29/18 14:30 Temperature 97.8 F Pulse Rate 114 H Respiratory 18 Rate Blood Pressure 152/106 O2 Sat by Pulse 98 Oximetry Disposition Clinical Impression: Alcohol abuse Disposition: HOME SELF-CARE Condition: Good Instructions (If sedation given, give patient instructions): Abuse of Alcohol ( ED) Is patient prescribed a controlled substance at d/c from ED?: No Referrals: Nonstaff,Physician [Primary Care Provider] - 1-2 days Time of Disposition: 14:48
[2018-06-29 14:56] VITALS: BP 150/106; PULSE 98; TEMP 98.4
== END 2018-06-29 14:55 | disposition home or self-care (01) ==
LOC: EC 14:27
DX: F10.10 Alcohol abuse, uncomplicated (principal); F32.9 Major depressive disorder, single episode, unspecified; Z79.899 Other long term (current) drug therapy
CPT/HCPCS: 99281

== ENCOUNTER 2018-08-05 17:08 | Emergency (ER) | payer OTHER ==
[2018-08-05 17:51] VITALS: TEMP 98
--- NOTE | 2018-08-05 19:15 | ED ---
Psych HPI - General Source: patient, family, RN notes reviewed, old records reviewed Mode of arrival: ambulatory - History of Present Illness MD Complaint: suicidal ideation, feels depressed -: unknown Associated Psychiatric Symptoms: depression, suicidal ideation History of same: Yes Quality: constant Improves With: none Worsens With: none Context: recent alcohol abuse Associated Symptoms: denies other symptoms Treatments Prior to Arrival: placed on mental health hold If Self Harm: admits thoughts of self harm <Gabriele Holm - Last Filed: 08/05/18 20:23> <Vivek Smith - Last Filed: 08/05/18 23:22> - General Chief Complaint: Psychiatric Symptoms Stated Complaint: petition Time Seen by Provider: 08/05/18 17:14 - History of Present Illness Initial Comments: This is a 52-year-old male the ER for evaluation today for evaluation regards to psychiatric illness, positive alcohol intoxication depression and suicidal deviation. Poor strain secondary to current alcohol and tox (Gabriele Holm) - Related Data Home Medications Medication Instructions Recorded Confirmed Escitalopram Oxalate [Lexapro] 20 mg PO DAILY 08/05/18 08/05/18 Allergies Allergy/AdvReac Type Severity Reaction Status Date / Time No Known Allergies Allergy Verified 08/05/18 18:40 Review of Systems ROS Other: All systems not noted in ROS Statement are negative. <Gabriele Holm - Last Filed: 08/05/18 20:23> ROS Other: All systems not noted in ROS Statement are negative. <Vivek Smith - Last Filed: 08/05/18 23:22> ROS Statement: Those systems with pertinent positive or pertinent negative responses have been documented in the HPI. Past Medical History Past Medical History: No Reported History Additional Past Medical History / Comment(s): ETOH with past withdrawal, diverticular disease, internal hemorrhoids. 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 Father Family Medical History: Cancer Additional Family Medical History / Comment(s): Father of colono cancer at the age of 75yrs. <Gabriele Holm - Last Filed: 08/05/18 20:23> General Exam Limitations: no limitations General appearance: alert, in no apparent distress, appears intoxicated Head exam: Present: atraumatic, normocephalic, normal inspection Eye exam: Present: normal appearance, PERRL, EOMI. Absent: scleral icterus, conjunctival injection, periorbital swelling ENT exam: Present: normal exam, mucous membranes moist Neck exam: Present: normal inspection. Absent: tenderness, meningismus, lymphadenopathy Respiratory exam: Present: normal lung sounds bilaterally. Absent: respiratory distress, wheezes, rales, rhonchi, stridor Cardiovascular Exam: Present: regular rate, normal rhythm, normal heart sounds. Absent: systolic murmur, diastolic murmur, rubs, gallop, clicks GI/Abdominal exam: Present: soft, normal bowel sounds. Absent: distended, tenderness, guarding, rebound, rigid Extremities exam: Present: normal inspection, full ROM, normal capillary refill. Absent: tenderness, pedal edema, joint swelling, calf tenderness Back exam: Present: normal inspection Neurological exam: Present: alert, oriented X3, CN II-XII intact Psychiatric exam: Present: normal affect, normal mood Skin exam: Present: warm, dry, intact, normal color. Absent: rash <Gabriele Holm - Last Filed: 08/05/18 20:23> Course <Gabriele Holm - Last Filed: 08/05/18 20:23> Vital Signs 08/05/18 08/05/18 08/05/18 17:19 18:00 19:25 Temperature 98 F Pulse Rate 92 80 87 Respiratory 18 18 16 Rate Blood Pressure 145/106 128/91 119/77 O2 Sat by Pulse 97 96 98 Oximetry - Reevaluation(s) Reevaluation #1: 08/05/18 20:24 Medical record is reviewed (Gabriele Holm) Medical Decision Making <Vivek Smith - Last Filed: 08/05/18 23:22> - Medical Decision Making This patient is signed out pending behavioral health evaluation. He has been seen and is now feeling much better, as he is sober. He is ike for safety. Will follow as outpatient (Vivek Smith) Disposition <Gabriele Holm - Last Filed: 08/05/18 20:23> Is patient prescribed a controlled substance at d/c from ED?: No <Vivek Smith - Last Filed: 08/05/18 23:22> Clinical Impression: Alcohol intoxication Disposition: HOME SELF-CARE Condition: Fair Instructions (If sedation given, give patient instructions): Alcohol Intoxication (ED) Referrals: None,Stated [Primary Care Provider] - 1-2 days
[2018-08-05 19:26] VITALS: RESP 16
[2018-08-05 23:23] VITALS: BP 131/84; PULSE 86
== END 2018-08-05 23:36 | disposition home or self-care (01) ==
LOC: EC 17:08
DX: F10.129 Alcohol abuse with intoxication, unspecified (principal); F32.9 Major depressive disorder, single episode, unspecified; Z79.899 Other long term (current) drug therapy
CPT/HCPCS: 82075; 99285

== ENCOUNTER 2018-08-14 21:19 | Inpatient (IN) | payer MEDICAID, OTHER ==
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
[2018-08-14 22:30] LABS: Appearance,Urine Clear (Clear); Bilirubin,Urine Negative (Negative); Blood,Urine Negative (Negative); Color,Urine Colorless; Glucose,Urine (UA) Negative (Negative); Ketones,Urine Negative (Negative); Leukocyte Esterase,Urine Negative (Negative); Nitrite,Urine Negative (Negative); PH, Urine 5.5 (5.0-8.0); Protein,Urine Negative (Negative); Specific Gravity,Urine 1.003 (1.001-1.035); Urobilinogen,Urine <2.0 mg/dL (<2.0)
[2018-08-14 23:22] LABS: Amphetamine Screen,Urine Not Detected (NotDetected); Barbiturate Screen,Urine Not Detected (NotDetected); Benzodiazepines Screen,Urine Not Detected (NotDetected); Cocaine Screen,Urine Not Detected (NotDetected); Methadone Screen, Urine Not Detected (NotDetected); Opiate Screen,Urine Not Detected (NotDetected); Oxycodone Screen, Urine Not Detected (NotDetected); Phencyclidine Screen,Urine Not Detected (NotDetected); Tricyclic Antidepressant,Urine Not Detected (NotDetected); Urn Cannabinoid Scrn Not Detected (NotDetected)
[2018-08-15] MEDS ORDERED: ONDANSETRON ODT 4 MG TAB PO STA (11:13)
[2018-08-15] MEDS ORDERED: LORazepam 1 MG TAB PO STA (11:13)
[2018-08-15] MEDS ORDERED: DIAZEPAM 5 MG TAB PO STA (11:59)
[2018-08-15] MEDS ORDERED: chlordiazePOXIDE 25 MG CAP PO STA (11:59)
[2018-08-15] MEDS ORDERED: LORazepam 2 MG/ML INJ IV STA (12:00)
[2018-08-15] MEDS ORDERED: SODIUM CHLORIDE 0.9% 1,000 ML IV ONE (12:01)
[2018-08-15 12:59] LABS: ALT 43 U/L (21-72); AST 71 U/L (17-59); Albumin 4.5 g/dL (3.5-5.0); Alkaline Phosphatase 106 U/L (38-126); Anion Gap 12 mmol/L; Blood Urea Nitrogen 9 mg/dL (9-20); Calcium 9.6 mg/dL (8.4-10.2); Carbon Dioxide 27 mmol/L (22-30); Chloride 100 mmol/L (98-107); Glucose 100 mg/dL (74-99); Magnesium 1.8 mg/dL (1.6-2.3); Potassium 3.6 mmol/L (3.5-5.1); Sodium 139 mmol/L (137-145); Total Bilirubin 1.3 mg/dL (0.2-1.3); Total Protein 7.3 g/dL (6.3-8.2)
[2018-08-15 13:18] LABS: Basophils % (A) 1 %; Eosinophils # (A) 0.1 k/uL (0-0.7); Eosinophils % (A) 2 %; HCT 41.7 % (39.0-53.0); HGB 14.6 gm/dL (13.0-17.5); Lymphocytes # (A) 0.8 k/uL (1.0-4.8); Lymphocytes % (A) 20 %; MCH 35.5 pg (25.0-35.0); MCV 101.2 fL (80.0-100.0); Mean Platelet Volume 6.9; Monocytes # (A) 0.3 k/uL (0-1.0); Monocytes % (A) 7 %; Neutrophils # (A) 2.7 k/uL (1.3-7.7); Neutrophils % (A) 66 %; Platelet Count 183 k/uL (150-450); RBC 4.12 m/uL (4.30-5.90); RDW 12.1 % (11.5-15.5); WBC 4.1 k/uL (3.8-10.6)
[2018-08-15] MEDS ORDERED: MAG HYDROX/AL HYDROX/SIMETH 30 ML CUP PO PRN (15:03)
[2018-08-15] MEDS ORDERED: MAGNESIUM HYDROXIDE 2,400 MG/10 ML CUP PO PRN (15:03)
[2018-08-15] MEDS ORDERED: ACETAMINOPHEN TAB 325 MG TAB PO PRN (15:03)
[2018-08-15] MEDS ORDERED: ONDANSETRON 4 MG TAB PO PRN (15:09)
[2018-08-15] MEDS: cloNIDine 0.1 MG/24HR PATCH TRANSDERM SCH (16:05)
[2018-08-15] MEDS: chlordiazePOXIDE 25 MG CAP PO SCH ×2 (17:34→21:01)
[2018-08-16] MEDS: chlordiazePOXIDE 25 MG CAP PO SCH ×4 (08:37→20:48)
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
[2018-08-16] MEDS: THIAMINE 100 MG TAB PO SCH (12:28)
[2018-08-16] MEDS: MULTIVITAMINS, THERA 1 EACH TAB PO SCH (12:29)
[2018-08-16 13:19] VITALS: BMI 25.0
[2018-08-16 19:01] LABS: Hemoglobin A1C 5.2 % (4.0-6.0)
[2018-08-16] MEDS: HALOPERIDOL 5 MG TAB PO SCH (20:47)
[2018-08-16] MEDS: SERTRALINE 25 MG TAB PO SCH (20:47)
[2018-08-16] MEDS: lamoTRIgine 25 MG TAB PO SCH (20:47)
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
[2018-08-17] MEDS: chlordiazePOXIDE 25 MG CAP PO SCH ×4 (08:32→20:52)
[2018-08-17] MEDS: HALOPERIDOL 5 MG TAB PO SCH ×2 (08:32→20:51)
[2018-08-17] MEDS: MULTIVITAMINS, THERA 1 EACH TAB PO SCH (12:07)
[2018-08-17] MEDS: THIAMINE 100 MG TAB PO SCH (12:07)
[2018-08-17] MEDS ORDERED: IBUPROFEN 800 MG TAB PO PRN (18:04)
--- NOTE | 2018-08-17 19:34 | PN ---
PROGRESS NOTE DATE OF SERVICE: August 17, 2018. CHIEF COMPLAINT: The patient was depressed with persistent suicide thoughts and actions to affect a suicide. INTERVAL HISTORY: Patient has been doing fair. He had a quiet evening last night. He said he slept about 4 hours last night. Today he has been up. He comes out in the day area. He interacts with others. He has been attending groups. He tends to be quiet in groups, though he does make an effort to engage. He has been appropriate and compliant with treatment and his interactions with staff and peers. He is able to talk about struggles he has had with alcohol as well as the culmination of struggles he has had with the alcohol. He has been in substance abuse treatment at [facility] 3 times in the past. He has not had any serious complications with alcohol withdrawal, namely no past issues with delirium tremens or seizures. He acknowledges the main stress issue beyond his drinking has been divorce, which occurred within the year. He notes currently he is having some left-sided muscle spasm in his lower back that can be quite severe. He tolerates his psychotropic medication. MENTAL STATUS: Patient gave fairly good eye contact. He was a little restless. He answered questions appropriately. His thoughts were clear, coherent, and goal directed. He was spontaneous and interactive. He had a quiet manner in a somewhat restricted affect, though he was appropriate in his responses. His mood was depressed. He was moderately distressed. There was no indication of thought disorder. Cognition was clear. He was oriented and alert. Recent and remote memory was intact. Attention and concentration fair. Insight fair. Vital signs at 6:46 am this morning included blood pressure 102/68, pulse 67 and regular, temp 97.6, respirations 16. ASSESSMENT: I will continue the current diagnosis and treatment plan. I will continue psychotropic medications the same includin. Zoloft 37.5 mg a day. 2. Lamictal 25 mg a day. 3. Haldol 2.5 mg twice a day. 4. Librium 25 mg q.i.d. I will increase frequency of vital signs for the next 48 hours. I will add Motrin 800 mg 3 times a day p.r.n. for muscle spasm and back pain. Patient says that he had taken Tylenol, which did not help at all with the above. I had an extensive discussion with the patient in regards to the near term withdrawal issues. I encouraged the patient to engage in a therapeutic walking program to help reduce physiologic stress response and better manage anxiety as well as withdrawal issues. We will continue to focus on stabilization and discharge planning. JASON / EDIN: [id number] /
[2018-08-17] MEDS: lamoTRIgine 25 MG TAB PO SCH (20:52)
[2018-08-17] MEDS: SERTRALINE 25 MG TAB PO SCH (20:52)
[2018-08-18] MEDS: HALOPERIDOL 5 MG TAB PO SCH ×2 (08:50→21:13)
[2018-08-18] MEDS: chlordiazePOXIDE 25 MG CAP PO SCH ×4 (08:50→21:13)
[2018-08-18] MEDS: THIAMINE 100 MG TAB PO SCH (12:45)
[2018-08-18] MEDS: MULTIVITAMINS, THERA 1 EACH TAB PO SCH (12:45)
--- NOTE | 2018-08-18 18:23 | PN ---
PROGRESS NOTE DATE OF SERVICE: 08/18/2018. CHIEF COMPLAINT: The patient was depressed with persistent suicide thoughts and actions to affect suicide. INTERVAL HISTORY: The patient has been doing fair. He had a quiet evening last night. He attended groups last night. He said he only slept 2 hours last night, though staff documented that he had slept 5 hours by their observation. Today he has been up. He comes out in the day area. He continues to attend groups. He has been appropriate. He had been reporting GI distress. He had stated yesterday that in previous days when he would eat his meals, he apparently would go back to his room and possibly throw up. He said he has not had any of that this weekend. His appetite is improving. He continues with some lower back pain. He related to muscle spasm, especially on his left side. He said he took 1 Motrin 800 mg this morning and so far has not seeing much response. In reviewing his history, it is noted that the patient went through a divorce in June 2017. He had been for 5 years. He was in a previous relationship and has 3 children. He stays in touch with one son though he is estranged from the other two as he says they pull away because of his drinking and persistent feelings around suicide. He notes that he has been in [place] for substance abuse treatment. His last treatment was in June. This past June he said when he got out he was only sober for a week and a half and then got back into drinking. He notes that when he was with his , she drank socially. She did not have alcohol problems, though she kept alcohol around the house and it was very difficult for him to resist that. He says that he has talked with Dr. Tobar about some options including 1 in the [facility] that it sounded like a care home house situation. He said that he would be looking into that further and hope for some guidance from Dr. Tobar in that regard BIWA scores have been below 10. Vital signs have been stable. He tolerates his psychotropic medications. MENTAL STATUS: Patient gave good eye contact. Psychomotor activity was restless. He answered questions appropriately. His thoughts were clear and coherent. His affect was somewhat anxious. He had a quiet manner. His mood was somewhat reserved, though not clearly down or depressed. He did not appear to be significantly distressed. There was no indication of thought disorder. Cognition was clear. ASSESSMENT: I will continue the current diagnosis and treatment plan. I will continue psychotropic medications the same. He is on an alcohol withdrawal protocol. He is at a point in the process of withdrawal that he likely will be able to be tapered from his Librium and also Haldol. We will continue to focus on stabilization and discharge planning. The patient indicated that he will be consulting with Dr. Tobar further in regards to possible outpatient referrals for addressing substance abuse issues. JASON / EDIN: [id number] /
[2018-08-18] MEDS: lamoTRIgine 25 MG TAB PO SCH (21:13)
[2018-08-18] MEDS: SERTRALINE 25 MG TAB PO SCH (21:13)
[2018-08-19] MEDS: chlordiazePOXIDE 25 MG CAP PO SCH (09:10)
[2018-08-19] MEDS: HALOPERIDOL 5 MG TAB PO SCH ×2 (09:10→21:31)
[2018-08-19] MEDS: MULTIVITAMINS, THERA 1 EACH TAB PO SCH (09:11)
[2018-08-19] MEDS: THIAMINE 100 MG TAB PO SCH (09:11)
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
[2018-08-19] MEDS: PRAMIPEXOLE 0.5 MG TAB PO SCH (21:31)
[2018-08-19] MEDS: MELOXICAM 7.5 MG TAB PO SCH (21:32)
[2018-08-19] MEDS: lamoTRIgine 25 MG TAB PO SCH (21:32)
[2018-08-19] MEDS: SERTRALINE 50 MG TAB PO SCH (21:32)
[2018-08-20] MEDS: HALOPERIDOL 5 MG TAB PO SCH ×2 (09:33→21:00)
[2018-08-20] MEDS: MELOXICAM 7.5 MG TAB PO SCH ×2 (09:34→21:01)
[2018-08-20 11:33] LABS: ALT 91 U/L (21-72); AST 76 U/L (17-59); Albumin 3.9 g/dL (3.5-5.0); Alkaline Phosphatase 88 U/L (38-126); Anion Gap 3 mmol/L; Blood Urea Nitrogen 12 mg/dL (9-20); Calcium 9.3 mg/dL (8.4-10.2); Carbon Dioxide 30 mmol/L (22-30); Chloride 105 mmol/L (98-107); Glucose 69 mg/dL (74-99); Potassium 4.3 mmol/L (3.5-5.1); Sodium 138 mmol/L (137-145); Total Bilirubin 0.5 mg/dL (0.2-1.3); Total Protein 6.4 g/dL (6.3-8.2)
[2018-08-20] MEDS ORDERED: MULTIVITAMINS, THERA 1 EACH TAB PO SCH (12:00)
[2018-08-20] MEDS: THIAMINE 100 MG TAB PO SCH (13:32)
[2018-08-20] MEDS: MULTIVITAMINS, THERA 1 EACH TAB PO SCH (13:32)
--- NOTE | 2018-08-20 17:11 | PN ---
PROGRESS NOTE DATE OF SERVICE: 08/20/2018. CHIEF COMPLAINT: The patient was depressed with persistent thoughts and actions to effect suicide. INTERVAL HISTORY: Patient has been doing fair. He had a quiet evening last night. He continues to report for sleep. He says that often he lays in bed and feels that he is aware of things going on around him through much of the night. He said later in the evening yesterday he started experiencing some visual hallucinations where he would see things around him that would come and go. He also said he had some faint voices. Today he has been up. He comes out in the day area. He attends groups. He has been appropriate and interactive in groups. He will interact with others. He describes some restlessness. Vital signs have been stable. He tolerates his psychotropic medications. MENTAL STATUS: Patient gave fair eye contact. Psychomotor activity was slow. Speech was monotone. He answered questions appropriately. His thoughts were clear. His affect was blunted. His mood quiet. He appeared to be somewhat distressed. There was no indication of thought disorder. ASSESSMENT: I will continue the current diagnosis and treatment plan. It is noted that his Librium was discontinued yesterday morning, that may have had some impact on his nighttime experience of some vague hallucinations as well as may have impacted his sleep. He has not shown any overt signs of significant alcohol withdrawal. Overall, he seems to be making progress. We will continue to focus on stabilization and discharge planning. JASON / EDIN: [id number] /
[2018-08-20] MEDS: lamoTRIgine 25 MG TAB PO SCH (21:01)
[2018-08-20] MEDS: SERTRALINE 50 MG TAB PO SCH (21:02)
[2018-08-20] MEDS: PRAMIPEXOLE 0.5 MG TAB PO SCH (21:03)
[2018-08-21] MEDS: HALOPERIDOL 5 MG TAB PO SCH (09:18)
[2018-08-21] MEDS: MELOXICAM 7.5 MG TAB PO SCH ×2 (09:18→20:33)
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
[2018-08-21] MEDS: THIAMINE 100 MG TAB PO SCH (13:31)
[2018-08-21] MEDS: lamoTRIgine 25 MG TAB PO SCH (20:33)
[2018-08-21] MEDS: PRAMIPEXOLE 0.5 MG TAB PO SCH (20:34)
[2018-08-21] MEDS: SERTRALINE 100 MG TAB PO SCH (20:34)
[2018-08-21] MEDS: MULTIVITAMINS, THERA 1 EACH TAB PO SCH (20:34)
[2018-08-21] MEDS ORDERED: PALIPERIDONE 3 MG TAB.ER.24 PO SCH (21:00)
[2018-08-22] MEDS: MELOXICAM 7.5 MG TAB PO SCH ×2 (08:42→21:48)
[2018-08-22] MEDS: THIAMINE 100 MG TAB PO SCH (12:46)
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
[2018-08-22] MEDS: cloNIDine 0.1 MG/24HR PATCH TRANSDERM SCH (15:55)
[2018-08-22] MEDS ORDERED: lamoTRIgine 25 MG TAB PO SCH (21:00)
[2018-08-22] MEDS: PALIPERIDONE 6 MG TAB.ER.24 PO SCH (21:07)
[2018-08-22] MEDS: SERTRALINE 100 MG TAB PO SCH (21:08)
[2018-08-22] MEDS: MULTIVITAMINS, THERA 1 EACH TAB PO SCH (21:08)
[2018-08-22] MEDS: PRAMIPEXOLE 1 MG TAB PO SCH (21:13)
[2018-08-23] MEDS: MELOXICAM 7.5 MG TAB PO SCH ×2 (09:00→20:12)
[2018-08-23] MEDS: THIAMINE 100 MG TAB PO SCH (12:38)
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
[2018-08-23] MEDS: MULTIVITAMINS, THERA 1 EACH TAB PO SCH (20:12)
[2018-08-23] MEDS: PALIPERIDONE 6 MG TAB.ER.24 PO SCH (20:12)
[2018-08-23] MEDS: PRAMIPEXOLE 1 MG TAB PO SCH (20:12)
[2018-08-23] MEDS: SERTRALINE 100 MG TAB PO SCH (20:12)
[2018-08-23] MEDS ORDERED: lamoTRIgine 100 MG TAB PO SCH (21:00)
[2018-08-24] MEDS: MELOXICAM 7.5 MG TAB PO SCH ×2 (08:44→21:17)
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
[2018-08-24] MEDS: THIAMINE 100 MG TAB PO SCH (12:02)
[2018-08-24] MEDS: PRAMIPEXOLE 1 MG TAB PO SCH (21:16)
[2018-08-24] MEDS: lamoTRIgine 100 MG TAB PO SCH (21:16)
[2018-08-24] MEDS: SERTRALINE 100 MG TAB PO SCH (21:17)
[2018-08-24] MEDS: PALIPERIDONE 6 MG TAB.ER.24 PO SCH (21:17)
[2018-08-24] MEDS: MULTIVITAMINS, THERA 1 EACH TAB PO SCH (21:17)
[2018-08-25] MEDS: MELOXICAM 7.5 MG TAB PO SCH ×2 (08:45→21:24)
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
[2018-08-25] MEDS: THIAMINE 100 MG TAB PO SCH (12:20)
[2018-08-25] MEDS: SERTRALINE 100 MG TAB PO SCH (21:24)
[2018-08-25] MEDS: PRAMIPEXOLE 1 MG TAB PO SCH (21:24)
[2018-08-25] MEDS: lamoTRIgine 100 MG TAB PO SCH (21:24)
[2018-08-25] MEDS: MULTIVITAMINS, THERA 1 EACH TAB PO SCH (21:24)
[2018-08-25] MEDS: PALIPERIDONE 6 MG TAB.ER.24 PO SCH (21:24)
[2018-08-26 07:05] VITALS: BP 113/73; PULSE 77; RESP 16; TEMP 97.4
[2018-08-26] MEDS: MELOXICAM 7.5 MG TAB PO SCH (08:52)
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
== END 2018-08-26 11:43 | disposition home or self-care (01) | DRG 885 ==
LOC: EC 21:19 → 3MHU 08-15 13:45
PROVIDERS: ADMIT Psychiatry & Neurology Psychiatry; ATTEND Psychiatry & Neurology Psychiatry
DX: F32.2 Major depressive disorder, single episode, severe without psychotic features (principal); R45.851 Suicidal ideations; R44.2 Other hallucinations; F10.229 Alcohol dependence with intoxication, unspecified; F41.9 Anxiety disorder, unspecified; G25.81 Restless legs syndrome; K57.90 Diverticulosis of intestine, part unspecified, without perforation or abscess without bleeding; K64.8 Other hemorrhoids; M54.5 Low back pain; M62.838 Other muscle spasm; R44.1 Visual hallucinations; Z79.899 Other long term (current) drug therapy; Z91.19 Patient's noncompliance with other medical treatment and regimen; Z80.8 Family history of malignant neoplasm of other organs or systems; Z81.8 Family history of other mental and behavioral disorders
CPT/HCPCS: 36415; 80053; 80061; 80306; 81003; 82075; 83036; 83735; 84443; 85025; 86141; 96361; 96374; 99285